=== PATIENT | male | born 1975 | race Caucasian/White ===

== ENCOUNTER → 2017-03-03 | Outpatient (CLI) | payer OTHER ==
--- NOTE | 2017-03-03 21:29 | XCELERA REPORT ---
[address] [address] Transthoracic Echocardiogram Report Name: RADHA CHOU JR Age: 41 yrs Gender: Male : 1975 Patient Status: Outpatient Patient Location: Study Date: 03/03/2017 09:04 AM Height: 69 in Weight: 190 lb BSA: 2.0 m2 Reason For Study: PERICARDIAL EFFUSION Ordering Physician: MARJAN LANGLEY Performed By: Rm Daigle Interpretation Summary no significant post pericardial effusion Normal AV Normal MV except mild mitral annular calcification,no Libman Sachs endocarditis., mild MR with no KA enlargement. Normal LVEF 58%, no LV diastolic dysfunction, hypokinetic IVS, anterior wall and apical lateral wall, no LV enlargement. Trace TR with no pulm hypertension, RVSP 25. MMode/2D Measurements \T\ Calculations RVDd: 2.8 cm LVIDd: 5.6 cm FS: 32.1 % Ao root diam: 3.2 cm IVSd: 0.75 cm LVIDs: 3.8 cm EDV(Teich): 151.8 ml LVPWd: 0.77 cm ESV(Teich): 61.3 ml Ao root area: 7.8 cm2 EF(Teich): 59.6 % LA dimension: 3.3 cm Doppler Measurements \T\ Calculations MV E max victor hugo: MV P1/2t max victor hugo: Ao V2 max: LV V1 max P.3 cm/sec 61.4 cm/sec 123.5 cm/sec 4.2 mmHg MV A max victor hugo: MV P1/2t: 72.1 msec Ao max PG: LV V1 max: 57.6 cm/sec 6.1 mmHg 102.2 cm/sec MV E/A: 1.0 MVA(P1/2t): 3.0 cm2 MV dec slope: 249.1 cm/sec2 PA V2 max: PI end-d victor hugo: TR max victor hugo: RAP systole: 55.8 cm/sec 99.9 cm/sec 193.2 cm/sec 10.0 mmHg PA max PG: TR max P.2 mmHg 15.0 mmHg RVSP(TR): 25.0 mmHg Left Ventricle The left ventricle is normal in size. There is normal left ventricular wall thickness. The left ventricular ejection fraction is normal. LV EF is 58%. Doppler measurements suggest normal left ventricular diastolic function. There is septal wall mild hypokinesis. There is anterior wall mild hypokinesis. There is lateral wall mild hypokinesis. There is no thrombus. Right Ventricle The right ventricle is normal size. The right ventricular systolic function is normal. Atria The right atrium is normal. The left atrial size is normal. The interatrial septum is intact with no evidence for an atrial septal defect. Mitral Valve There is mild mitral leaflet calcification. There is no evidence of mitral valve prolapse. There is no vegetation seen on the mitral valve. There is no mitral valve stenosis. There is a mild amount of mitral regurgitation. Aortic Valve The aortic valve is normal in structure and functions normally. The aortic valve is trileaflet. The aortic valve opens well. There is no aortic valvular vegetation. There is no aortic valve stenosis. No aortic regurgitation is present. Tricuspid Valve The tricuspid valve is not well visualized, but is grossly normal. There is no tricuspid valve prolapse. There is no tricuspid valve vegetation. There is no tricuspid stenosis. There is a mild amount of tricuspid regurgitation. Right ventricular systolic pressure is normal. 25mmHg. Pulmonic Valve The pulmonic valve is not well seen, but is grossly normal. There is a trace or physiologic amount of pulmonic regurgitation. Great Vessels The aortic root is normal size. Effusions Minimal pericardial effusion. I WMSI = 1.63 % Normal = 38 Segments Size X - Cannot 1 - Normal 2 - 3 - Akinetic4 - 1-2 small Interpret Hypokinetic Dyskinetic 3-5 moderate 5 - 6-14 large Aneurysmal 15-16 diffuse : MARJAN LANGLEY > Torito Boggs
== END ==
LOC: SP 08:27
PROVIDERS: ATTEND Internal Medicine Rheumatology
DX: L93.1 Subacute cutaneous lupus erythematosus (principal); I31.3 Pericardial effusion (noninflammatory); I27.2 Other secondary pulmonary hypertension
CPT/HCPCS: 93306

== ENCOUNTER 2018-06-05 07:31 | Day surgery (SDC) | payer OTHER ==
[~2018-06-05 07:31] MED LIST: PROPOFOL INJ 200 MG/20 ML VIAL IV ONE
[2018-06-05 09:03] VITALS: BP 106/66
--- NOTE | 2018-06-05 13:05 | Operative Report ---
Operative Report DATE OF SURGERY: 06/05/18 Operative Report: The risks, benefits and alternatives of the procedure including risks of bleeding, perforation requiring surgery are explained to the patient in detail and informed consent is obtained. Patient has taken back to the endoscopy suite and placed in a left, lateral decubital position. Timeout was called. Propofol medications administered. A rectal examination is done which did not reveal any masses, tears or fissures. An Olympus videoscope was inserted into the patient's rectum. The scope was then carefully advanced all the way to the cecum. The cecum was identified by the usual anatomical landmarks including the ileocecal valve as well as the appendiceal office. Photodocumentation is obtained. The scope was then sequentially pulled back via the rest segments of the colon including the ascending colon, hepatic flexure, transverse colon, splenic flexure, descending colon and finally into the rectosigmoid portions of the colon. Retroflexion maneuvers performed. The risks benefits and alternatives of the procedure explained to the patient in detail and informed consent is obtained.A GIF Olympus video scope was inserted into the patient's mouth and hypopharynx, the esophagus is identified intubated and insufflated, the scope was then advanced through the esophagus stomach and duodenum, retroflexion maneuver is done, the esophagus stomach and first and second portions of the duodenum examined PREOPERATIVE DIAGNOSIS: Change in bowel habits. Dysphagia POSTOPERATIVE DIAGNOSIS: Inflammation noted on the right side of the colon status post biopsy. Internal hemorrhoids. Gastritis status post biopsy rule out Helicobacter pylori. Esophagitis versus Mercado's status post biopsy OPERATION: Colonoscopy with biopsy. EGD with biopsy SURGEON: TIFFANIE MARQUES ANESTHESIA: LMAC TISSUE REMOVED OR ALTERED: As noted above COMPLICATIONS: None. ESTIMATED BLOOD LOSS: None. INTRAOPERATIVE FINDINGS: As noted above. PROCEDURE: Patient tolerated procedure well. No immediate postprocedure complications are noted. Patient discharged in good condition. Discharge date 06/05/2018. Discharge diet: Regular. Discharge activity: Regular. 2-3 week follow-up to discuss findings. Patient is instructed to call the office or proceed to the emergency room should there be any further problems or questions. We will wait on pathology.
== END 2018-06-05 09:05 | disposition home or self-care (01) ==
LOC: END 07:31
PROVIDERS: ATTEND Internal Medicine Gastroenterology
DX: K21.0 Gastro-esophageal reflux disease with esophagitis (principal); K52.9 Noninfective gastroenteritis and colitis, unspecified; K64.8 Other hemorrhoids; K29.70 Gastritis, unspecified, without bleeding
CPT/HCPCS: 43239; 45380; 88305 ×2; 88312 ×2; J2704; 813

== ENCOUNTER 2018-07-25 17:02 | Emergency (ER) | payer OTHER ==
--- NOTE | 2018-07-25 19:02 | ER Document Report ---
ED Medical Screen (RME) - General Chief Complaint: Breathing Difficulty Stated Complaint: DIFFICULTY BREATHING Time Seen by Provider: 07/25/18 18:54 TRAVEL OUTSIDE OF THE [place] IN LAST 30 DAYS: No - HPI Notes: 07/25/18 19:00 Patient is a 43-year-old male with a history of lupus and PTSD who presents to the ED complaining of right sided sharp chest pain with deep inspiration that is also worsened by going up stairs over the last 3-4 days. Denies any prolonged immobilization, distance travel, recent surgery/trauma, current CA, hormone use, current smoking, or previous DVT/PE. Denies any headache, fever, URI, sore throat, palpitations, syncope, cough, wheezing, abdominal pain, nausea/vomiting/diarrhea, urinary retention, dysuria, hematuria, or rash. I have treated and performed a rapid initial assessment of this patient. A comprehensive ED assessment and evaluation of the patient, analysis of test results and completion of medical decision making process will be conducted by additional ED providers. PHYSICAL EXAMINATION: GENERAL: Well-appearing, well-nourished and in no acute distress. A&Ox4. Answers questions appropriately. LUNGS: Breath sounds clear to auscultation bilaterally and equal. No wheezes rales or rhonchi. HEART: Regular rate and rhythm without murmurs, rubs, gallops. ABDOMEN: Soft, nondistended abdomen. No guarding, no rebound. Normal bowel sounds present. No CVA tenderness bilaterally. grossly non-tender. Extremities: No cyanosis, clubbing, or edema b/l. no asymmetry. Brooke neg b/ l. NEUROLOGICAL: Normal speech, normal gait. PSYCH: Normal mood, normal affect. - Related Data Allergies/Adverse Reactions: No Known Allergies Allergy (Verified 07/25/18 17:03) Past Medical History - Past Medical History Cardiac Medical History: Denies: Hx Coronary Artery Disease, Hx Heart Attack, Hx Hypertension Pulmonary Medical History: Denies: Hx Asthma, Hx Bronchitis, Hx COPD, Hx Pneumonia Neurological Medical History: Denies: Hx Cerebrovascular Accident, Hx Seizures Musculoskeltal Medical History: Reports Hx Arthritis - R/T LUPUS Past Surgical History: Reports: Hx Neurologic Surgery - RF ABLATION OF SPINAL NERVES IN NECK, Hx Orthopedic Surgery, Hx Urinary Tract Surgery - VASECTOMY - Immunizations Hx Diphtheria, Pertussis, Tetanus Vaccination: - Unknown Influenza Administration Date for 08/2017 - 01/2018 Season: 08/21/17 Physical Exam - Vital signs Vitals: Temp Pulse Resp BP Pulse Ox 98.5 F 94 20 111/72 97 07/25/18 18:02 07/25/18 18:02 07/25/18 18:02 07/25/18 18:02 07/25/18 18:02 Course - Vital Signs Vital signs: Temp Pulse Resp BP Pulse Ox 98.5 F 94 20 111/72 97 07/25/18 18:02 07/25/18 18:02 07/25/18 18:02 07/25/18 18:02 07/25/18 18:02 Doctor's Discharge - Discharge Referrals: ZION TOLENTINO MD [Primary Care Provider] - Follow up as needed
--- NOTE | 2018-07-25 19:23 | EKG REPORT ---
SEVERITY:- NORMAL ECG - SINUS RHYTHM : Confirmed by: Torito Boggs MD 25-Jul-2018 19:22:52
--- NOTE | 2018-07-25 20:35 | RADIOLOGY REPORT (SQ) ---
EXAM DESCRIPTION: CHEST SINGLE VIEW COMPLETED DATE/TIME: 07/25/2018 7:54 pm REASON FOR STUDY: chest pain, sob COMPARISON: 08/29/2016 EXAM PARAMETERS: NUMBER OF VIEWS: One view. TECHNIQUE: Single frontal radiographic view of the chest acquired. RADIATION DOSE: NA LIMITATIONS: None. FINDINGS: LUNGS AND PLEURA: No opacities, masses or pneumothorax. No pleural effusion. MEDIASTINUM AND HILAR STRUCTURES: No masses. Contour normal. HEART AND VASCULAR STRUCTURES: Heart normal in size. Normal vasculature. BONES: No acute findings. HARDWARE: None in the chest. OTHER: No other significant finding. IMPRESSION: NO ACUTE RADIOGRAPHIC FINDING IN THE CHEST. TECHNICAL DOCUMENTATION: JOB ID: [id number] [employer]- All Rights Reserved Reading location - IP/workstation name: [email or web address]
[2018-07-25 20:39] LABS: ABSOLUTE BASOPHILS # (AUTO) 0.1 10^3/uL (0.0-0.2); ABSOLUTE EOSINOPHILS # (AUTO) 0.2 10^3/uL (0.0-0.6); ABSOLUTE LYMPHOCYTES (AUTO) 2.4 10^3/uL (0.5-4.7); ABSOLUTE MONOCYTES (AUTO) 0.6 10^3/uL (0.1-1.4); ABSOLUTE NEUT (AUTO) 6.8 10^3/uL (1.7-8.2); BASOPHILS % (AUTO) 1.2 % (0-2); EOSINOPHILS % (AUTO) 1.6 % (0-6); HEMATOCRIT 42.3 % (37.9-51.0); HEMOGLOBIN 14.3 g/dL (13.5-17.0); LYMPHOCYTES % (AUTO) 23.6 % (13-45); MEAN CORPUSCULAR HEMOGLOBIN 27.6 pg (27.0-33.4); MEAN CORPUSCULAR HGB CONC 33.8 g/dL (32.0-36.0); MEAN CORPUSCULAR VOLUME 82 fl (80-97); MONOCYTES % (AUTO) 6.1 % (3-13); PLATELET COUNT 279 10^3/uL (150-450); RED BLOOD COUNT 5.18 10^6/uL (4.35-5.55); RED CELL DISTRIBUTION WIDTH 14.1 % (11.5-14.0); SEGMENTED NEUTROPHILS % (AUTO) 67.5 % (42-78); TOTAL CELLS COUNTED % (AUTO) 100 %; WHITE BLOOD COUNT 10.1 10^3/uL (4.0-10.5)
[2018-07-25 20:57] LABS: ALANINE AMINOTRANSFERASE 31 U/L (21-72); ALBUMIN 4.2 g/dL (3.5-5.0); ALKALINE PHOSPHATASE 46 U/L (38-126); ANION GAP 10 (5-19); ASPARTATE AMINO TRANSFERASE 25 U/L (17-59); BILIRUBIN,DIRECT 0.3 mg/dL (0.0-0.4); BILIRUBIN,TOTAL 0.4 mg/dL (0.2-1.3); BLOOD UREA NITROGEN 12 mg/dL (7-20); CALCIUM 9.7 mg/dL (8.4-10.2); CARBON DIOXIDE 30 mmol/L (22-30); CHLORIDE 103 mmol/L (98-107); GLUCOSE 97 mg/dL (75-110); SODIUM 142.8 mmol/L (137-145)
[2018-07-25 21:10] LABS: NT PRO BNP < 11 pg/mL (<125); TROPONIN I < 0.012 ng/mL
[2018-07-25] MEDS ORDERED: METHYLPREDNISOLONE INJ 125 MG/2 ML SDV IV ONE (23:42)
[2018-07-26 00:07] VITALS: BP 112/80
--- NOTE | 2018-07-26 00:54 | ER Document Report ---
ED General - General Chief Complaint: Breathing Difficulty Stated Complaint: DIFFICULTY BREATHING Time Seen by Provider: 07/25/18 18:54 Information source: Patient, Relative TRAVEL OUTSIDE OF THE [place] IN LAST 30 DAYS: No - HPI Patient complains to provider of: Pain along right chest Onset: Other - This 43-year-old man presents for evaluation of pain and some shortness of breath associated with some discomfort along the right side of his chest which is similar to previous episodes of lupus flares he has had in the past, he was diagnosed with lupus and started on multiple immunomodulators in the past including daily prednisone. Currently denies any fevers or chills, any systemic signs of infection, denies any changes in his medications recently. Nothing is seemed to make this pain any better, touching the spot seems to make it worse. - Related Data Allergies/Adverse Reactions: No Known Allergies Allergy (Verified 07/25/18 17:03) Past Medical History - General Information source: Patient, Relative - Social History Smoking Status: Former Smoker Family History: CAD - MOTHER IN LATE 30's Patient has suicidal ideation: No Patient has homicidal ideation: No - Past Medical History Cardiac Medical History: Denies: Hx Coronary Artery Disease, Hx Heart Attack, Hx Hypertension Pulmonary Medical History: Denies: Hx Asthma, Hx Bronchitis, Hx COPD, Hx Pneumonia Neurological Medical History: Denies: Hx Cerebrovascular Accident, Hx Seizures Renal/ Medical History: Denies: Hx Peritoneal Dialysis Musculoskeletal Medical History: Reports Hx Arthritis - R/T LUPUS Past Surgical History: Reports: Hx Neurologic Surgery - RF ABLATION OF SPINAL NERVES IN NECK, Hx Orthopedic Surgery, Hx Urinary Tract Surgery - VASECTOMY - Immunizations Hx Diphtheria, Pertussis, Tetanus Vaccination: - Unknown Review of Systems - Review of Systems -: Yes All other systems reviewed and negative Physical Exam - Vital signs Vitals: Temp Pulse Resp BP Pulse Ox 98.5 F 94 20 111/72 97 07/25/18 18:02 07/25/18 18:02 07/25/18 18:02 07/25/18 18:02 07/25/18 18:02 - General General appearance: Appears well In distress: None - HEENT Head: Normocephalic Eyes: Normal Conjunctiva: Normal Cornea: Normal Extraocular movements intact: Yes Eyelashes: Normal Pupils: PERRL - Respiratory Respiratory status: No respiratory distress Chest status: Tender Breath sounds: Normal Chest palpation: Normal - Cardiovascular Rhythm: Regular, Other Heart sounds: Normal auscultation Murmur: No - Abdominal Inspection: Normal Distension: No distension Tenderness: Nontender - Back Back: Normal - Extremities General upper extremity: Normal inspection, Nontender, Normal strength, Normal temperature General lower extremity: Normal inspection, Nontender, Normal strength, Normal temperature - Neurological Neuro grossly intact: Yes Cognition: Normal Orientation: AAOx4 Zev Coma Scale Eye Opening: Spontaneous Zev Coma Scale Verbal: Oriented [place] Coma Scale Motor: Obeys Commands [place] Coma Scale Total: 15 Speech: Normal Cranial nerves: Normal Cerebellar coordination: Normal Motor strength normal: LUE, RUE, LLE, RLE - Psychological Associated symptoms: Normal affect Course - Re-evaluation Re-evalutation: 07/26/18 07:24 43-year-old man who presents for evaluation of atypical chest pain in the setting of previous lupus flares. His current reproducible chest pain at the base of the right chest wall, through triage she had an EKG obtained as well as a troponin chest x-ray and labs. My does have pain in the right upper quadrant his LFTs are reassuring, he does not have any change in his LDH to suggest potential developing cholecystitis and his Tim sign is negative. Patient notes that in the past she has had episodes like this that responded very well to prednisone. Given that he does not have any obvious systemic signs of infection at this time will plan for the administration of prednisone IV. On reassessment after administration of methylprednisolone IV patient states that his pain is essentially entirely resolved, he feels as if his lungs are now open. I did speak to him about further options about testing. Following a secondary troponin which was also negative as was his first plan for this patient be discharged with follow-up with his source inspector he notes that he would like to talk to them about adjusting medications has no desire to pursue further testing at this time as he believes this is related to his lupus. We will plan for discharge with return precautions and encouraged follow-up in his primary physician's office. He was given a prescription for a single dose of 60 mg of prednisone in case of any return of symptoms. At the time of discharge the patient had been monitoring emergency department without any events he is ambulatory without assistance and had normal work of breathing. - Vital Signs Vital signs: Temp Pulse Resp BP Pulse Ox 98.5 F 66 16 112/80 96 07/25/18 18:02 07/26/18 00:06 07/26/18 00:06 07/26/18 00:06 07/26/18 00:06 - Laboratory Result Diagrams: 07/25/18 20:28 07/25/18 20:28 Laboratory results interpreted by me: 07/25/18 20:28 RDW 14.1 H Discharge - Discharge Clinical Impression: Shortness of breath Chest pain Qualifiers: Chest pain type: unspecified Qualified Code(s): R07.9 - Chest pain, unspecified Condition: Good Disposition: HOME, SELF-CARE Instructions: Chest Wall Pain ([facility]) Additional Instructions: you were seen for your chest pain and shortness of breath today. Your given a dose of steroids, you had 2 markers for heart damage both of which were negative. I am going to give you a second dose of steroids you can take tomorrow if you are still having some discomfort. Call your source inspector for appropriate follow-up. Prescriptions: Prednisone 60 mg PO ONCE PRN #3 tablet PRN Reason: Referrals: ZION TOLENTINO MD [Primary Care Provider] - Follow up as needed
== END 2018-07-26 01:14 | disposition home or self-care (01) ==
LOC: ER 17:02
DX: R06.02 Shortness of breath (principal); R07.9 Chest pain, unspecified; Z87.891 Personal history of nicotine dependence
CPT/HCPCS: 93005; 99285; 96374; 36415; 85025; 80053; 84484; 83880; 71045; 93010; J2930

== ENCOUNTER → 2018-09-01 | Outpatient (CLI) | payer OTHER ==
[2018-09-01 11:27] LABS: HEMATOCRIT 41.4 % (37.9-51.0); HEMOGLOBIN 14.2 g/dL (13.5-17.0); MEAN CORPUSCULAR HEMOGLOBIN 27.8 pg (27.0-33.4); MEAN CORPUSCULAR HGB CONC 34.3 g/dL (32.0-36.0); MEAN CORPUSCULAR VOLUME 81 fl (80-97); PLATELET COUNT 311 10^3/uL (150-450); RED BLOOD COUNT 5.12 10^6/uL (4.35-5.55); RED CELL DISTRIBUTION WIDTH 14.3 % (11.5-14.0); WHITE BLOOD COUNT 9.2 10^3/uL (4.0-10.5)
[2018-09-01 11:58] LABS: ALANINE AMINOTRANSFERASE 39 U/L (21-72); ALBUMIN 4.3 g/dL (3.5-5.0); ALKALINE PHOSPHATASE 52 U/L (38-126); ANION GAP 10 (5-19); ASPARTATE AMINO TRANSFERASE 26 U/L (17-59); BILIRUBIN,DIRECT 0.2 mg/dL (0.0-0.4); BILIRUBIN,TOTAL 0.6 mg/dL (0.2-1.3); BLOOD UREA NITROGEN 15 mg/dL (7-20); CALCIUM 9.9 mg/dL (8.4-10.2); CARBON DIOXIDE 28 mmol/L (22-30); CHLORIDE 103 mmol/L (98-107); GLUCOSE 101 mg/dL (75-110); POTASSIUM 4.8 mmol/L (3.6-5.0); SODIUM 141.4 mmol/L (137-145)
[2018-09-01 12:12] LABS: FREE T3 3.43 pg/mL (2.77-5.27); FREE T4 (FREE THYROXINE) 0.87 ng/dL (0.78-2.19)
[2018-09-01 12:25] LABS: THYROID STIMULATING HORMONE 1.24 uIU/mL (0.47-4.68)
[2018-09-01 13:00] LABS: FOLATE 6.22 ng/mL (>2.76)
== END ==
LOC: OD 10:41
PROVIDERS: ATTEND Specialist
DX: G47.33 Obstructive sleep apnea (adult) (pediatric) (principal); G70.01 Myasthenia gravis with (acute) exacerbation; M62.81 Muscle weakness (generalized)
CPT/HCPCS: 36415; 80053; 82607; 82746; 83519; 84439; 84443; 84481; 85027

== ENCOUNTER 2018-10-20 09:41 | Emergency (ER) | payer OTHER ==
[2018-10-20] MEDS ORDERED: KETOROLAC TROMETHAMINE INJ/PF 30 MG/1 ML SDV IV ONE (12:37)
--- NOTE | 2018-10-20 12:40 | ER Document Report ---
ED General - General Chief Complaint: Shortness Of Breath Stated Complaint: BACK PAIN, TROUBLE BREATHING Time Seen by Provider: 10/20/18 12:09 Notes: Patient is a 43-year-old male with lupus that presents to the emergency department for chief complaint of thoracic back pain. Patient states he has been having pain in his upper back for about 2 weeks, has had a history of this in the past, that has been on and off for the past 5 years, but seemingly worse over the last 2 weeks. He rates the pain as a 7 out of 10, and occasionally worse with a deep breath. He states the pain is reproducible with pressing in a certain area of his left lower back and will wrap around towards the front. He reports he has had advanced imaging of MRIs for this pain, without any results that explain his symptoms. He is intermittently been on prednisone bursting which has helped with his symptoms. He describes the pain as an aching and occasionally sharp sensation. He denies having any chest pain with this, fevers, chills, night sweats, nausea, vomiting, abdominal pain, dysuria or hematuria. Past Medical History: Lupus, PTSD Past Surgical History: Ankle surgery, lipoma excision Social History: Denies tobacco use, admits to drinking 2-3 beers a day, denies illicit drug use. Family History: Reviewed and noncontributory for presenting illness Allergies: Reviewed, see documented allergy list. REVIEW OF SYSTEMS: Other than noted above, the 12 point review of systems was reviewed with the patient and were negative, all pertinent findings are included in the HPI. PHYSICAL EXAMINATION: Vital signs reviewed, nursing noted reviewed. GENERAL: Well-appearing, well-nourished and in no acute distress. HEAD: Atraumatic, normocephalic. EYES: Eyes appear normal, extraocular movements intact, sclera anicteric, conjunctiva are normal. ENT: nares patent, oropharynx clear without exudates. Moist mucous membranes. NECK: Normal range of motion, supple without lymphadenopathy LUNGS: Breath sounds clear to auscultation bilaterally and equal. No wheezes rales or rhonchi. HEART: Regular rate and rhythm without murmurs ABDOMEN: Soft, nontender, normoactive bowel sounds. No rebound, guarding, or rigidity. No masses appreciated. Back: There is an area of reproducible tenderness over the patient's left lower ribs, posteriorly, which extends out towards the flanks, no evidence of rash, no shingles present. No midline tenderness to the thoracic or lumbar spine. EXTREMITIES: Nontender, good range of motion, no pitting or edema. NEUROLOGICAL: No focal neurological deficits. Moves all extremities spontaneously Motor and sensory grossly intact on exam. PSYCH: Normal mood, normal affect. SKIN: Warm, Dry, normal turgor, no rashes or lesions noted on exposed skin TRAVEL OUTSIDE OF THE [place] IN LAST 30 DAYS: No - Related Data Allergies/Adverse Reactions: No Known Allergies Allergy (Verified 10/20/18 09:41) Past Medical History - Social History Smoking Status: Never Smoker Chew tobacco use (# tins/day): No Frequency of alcohol use: Occasional Drug Abuse: Marijuana Family History: CAD - MOTHER IN LATE 30's Patient has suicidal ideation: No Patient has homicidal ideation: No - Past Medical History Cardiac Medical History: Denies: Hx Coronary Artery Disease, Hx Heart Attack, Hx Hypertension Pulmonary Medical History: Denies: Hx Asthma, Hx Bronchitis, Hx COPD, Hx Pneumonia Neurological Medical History: Denies: Hx Cerebrovascular Accident, Hx Seizures Renal/ Medical History: Denies: Hx Peritoneal Dialysis Musculoskeletal Medical History: Reports Hx Arthritis - R/T LUPUS Psychiatric Medical History: Reports: Hx Depression - PTSD Past Surgical History: Reports: Hx Neurologic Surgery - RF ABLATION OF SPINAL NERVES IN NECK, Hx Orthopedic Surgery, Hx Urinary Tract Surgery - VASECTOMY - Immunizations Hx Diphtheria, Pertussis, Tetanus Vaccination: - Unknown Physical Exam - Vital signs Vitals: Temp Pulse Resp BP Pulse Ox 97.7 F 79 20 123/90 H 100 10/20/18 09:45 10/20/18 09:45 10/20/18 09:45 10/20/18 09:45 10/20/18 09:45 Course - Re-evaluation Re-evalutation: Patient seen and examined vital signs reviewed. Laboratory data and imaging were ordered as appropriate for the patient's presenting symptoms and complaint, with consideration of any critical or life threatening conditions that may be associated with their obtained history and exam as noted above. Patient was treated with Toradol for pain Results were reviewed when available and demonstrated unremarkable blood work, negative chest x-ray, negative UA The patient was re-evaluated and was stable and somewhat improved Evaluation was most consistent with muscle skeletal back pain, patient did have reproducible tenderness, possibly is a flare of his lupus, therefore we will treat him with 5 days of 60 mg of prednisone daily, and have him resume back to his 10 mg daily and follow-up with his radiology practitioner assistant patient was agreeable to this plan of care. Results were discussed with the patient at this point, after careful consideration I feel that that patient can be discharged from the emergency department, the patient was educated treatments and reasons to return to the emergency department based on their presumed diagnosis as noted above, they were advised to followup with a primary care physician in 2-3 days. Patient was agreeable to plan of care. *Note is created using voice recognition software and may contain spelling, syntax or grammatical errors. Laboratory 10/20/18 10/20/18 10/20/18 10:03 10:03 10:03 WBC 8.9 RBC 5.08 Hgb 14.2 Hct 41.2 MCV 81 MCH 27.9 MCHC 34.4 RDW 15.2 H Plt Count 247 Seg Neutrophils % 65.9 Lymphocytes % 21.5 Monocytes % 7.7 Eosinophils % 3.6 Basophils % 1.3 Absolute Neutrophils 5.9 Absolute Lymphocytes 1.9 Absolute Monocytes 0.7 Absolute Eosinophils 0.3 Absolute Basophils 0.1 Sodium 143.8 Potassium 4.0 Chloride 106 Carbon Dioxide 29 Anion Gap 9 BUN 9 Creatinine 0.91 Est GFR ( Amer) > 60 Est GFR (Non-Af Amer) > 60 Glucose 104 Calcium 9.2 Total Bilirubin 0.3 Direct Bilirubin 0.2 Neonat Total Bilirubin Not Reportable Neonat Direct Bilirubin Not Reportable Neonat Indirect Bili Not Reportable AST 27 ALT 26 Alkaline Phosphatase 47 Troponin I < 0.012 Total Protein 6.9 Albumin 3.9 Urine Color Urine Appearance Urine pH Ur Specific [place] Urine Protein Urine Glucose (UA) Urine Ketones Urine Blood Urine Nitrite Urine Bilirubin Urine Urobilinogen Ur Leukocyte Esterase Urine WBC (Auto) Urine RBC (Auto) Urine Mucus (Auto) Urine Ascorbic Acid 10/20/18 13:28 WBC RBC Hgb Hct MCV MCH MCHC RDW Plt Count Seg Neutrophils % Lymphocytes % Monocytes % Eosinophils % Basophils % Absolute Neutrophils Absolute Lymphocytes Absolute Monocytes Absolute Eosinophils Absolute Basophils Sodium Potassium Chloride Carbon Dioxide Anion Gap BUN Creatinine Est GFR ( Amer) Est GFR (Non-Af Amer) Glucose Calcium Total Bilirubin Direct Bilirubin Neonat Total Bilirubin Neonat Direct Bilirubin Neonat Indirect Bili AST ALT Alkaline Phosphatase Troponin I Total Protein Albumin Urine Color YELLOW Urine Appearance CLEAR Urine pH 6.0 Ur Specific [place] 1.013 Urine Protein NEGATIVE Urine Glucose (UA) NEGATIVE Urine Ketones NEGATIVE Urine Blood NEGATIVE Urine Nitrite NEGATIVE Urine Bilirubin NEGATIVE Urine Urobilinogen NEGATIVE Ur Leukocyte Esterase NEGATIVE Urine WBC (Auto) 0 Urine RBC (Auto) 0 Urine Mucus (Auto) RARE Urine Ascorbic Acid NEGATIVE Chest X-Ray 10/20/18 12:36 IMPRESSION: NO ACUTE RADIOGRAPHIC FINDING IN THE CHEST. - Vital Signs Vital signs: Temp Pulse Resp BP Pulse Ox 97.7 F 79 14 103/52 L 93 10/20/18 09:45 10/20/18 09:45 10/20/18 14:01 10/20/18 14:01 10/20/18 14:01 - Laboratory Result Diagrams: 10/20/18 10:03 10/20/18 10:03 Laboratory results interpreted by me: 10/20/18 10:03 RDW 15.2 H Discharge - Discharge Clinical Impression: Back pain Qualifiers: Back pain location: thoracic back pain Chronicity: chronic Back pain laterality : left Qualified Code(s): M54.6 - Pain in thoracic spine; G89.29 - Other chronic pain; G89.29 - Other chronic pain Condition: Stable Disposition: HOME, SELF-CARE Instructions: Chronic Back Pain ([facility]) Additional Instructions: Please take medications as prescribed, please follow-up with your radiology practitioner assistant , if your symptoms are worsening or not improving, do not hesitate to return to the emergency department. Prescriptions: Prednisone [Deltasone 20 mg Tablet] 3 tab PO DAILY 5 Days #15 tablet Referrals: ZION TOLENTINO MD [Primary Care Provider] - Follow up in 3-5 days
[2018-10-20 12:57] LABS: ABSOLUTE BASOPHILS # (AUTO) 0.1 10^3/uL (0.0-0.2); ABSOLUTE EOSINOPHILS # (AUTO) 0.3 10^3/uL (0.0-0.6); ABSOLUTE LYMPHOCYTES (AUTO) 1.9 10^3/uL (0.5-4.7); ABSOLUTE MONOCYTES (AUTO) 0.7 10^3/uL (0.1-1.4); ABSOLUTE NEUT (AUTO) 5.9 10^3/uL (1.7-8.2); BASOPHILS % (AUTO) 1.3 % (0-2); EOSINOPHILS % (AUTO) 3.6 % (0-6); HEMATOCRIT 41.2 % (37.9-51.0); HEMOGLOBIN 14.2 g/dL (13.5-17.0); LYMPHOCYTES % (AUTO) 21.5 % (13-45); MEAN CORPUSCULAR HEMOGLOBIN 27.9 pg (27.0-33.4); MEAN CORPUSCULAR HGB CONC 34.4 g/dL (32.0-36.0); MEAN CORPUSCULAR VOLUME 81 fl (80-97); MONOCYTES % (AUTO) 7.7 % (3-13); PLATELET COUNT 247 10^3/uL (150-450); RED BLOOD COUNT 5.08 10^6/uL (4.35-5.55); RED CELL DISTRIBUTION WIDTH 15.2 % (11.5-14.0); SEGMENTED NEUTROPHILS % (AUTO) 65.9 % (42-78); TOTAL CELLS COUNTED % (AUTO) 100 %; WHITE BLOOD COUNT 8.9 10^3/uL (4.0-10.5)
--- NOTE | 2018-10-20 12:57 | RADIOLOGY REPORT (SQ) ---
EXAM DESCRIPTION: CHEST 2 VIEWS COMPLETED DATE/TIME: 10/20/2018 12:49 pm REASON FOR STUDY: pleuritic pain COMPARISON: AP CHEST 07/25/2018, 06/16/2016 EXAM PARAMETERS: NUMBER OF VIEWS: two views TECHNIQUE: Digital Frontal and Lateral radiographic views of the chest acquired. RADIATION DOSE: NA LIMITATIONS: none FINDINGS: LUNGS AND PLEURA: No opacities, masses or pneumothorax. No pleural effusion. MEDIASTINUM AND HILAR STRUCTURES: No masses or contour abnormalities. HEART AND VASCULAR STRUCTURES: Heart normal size. No evidence for failure. BONES: No acute findings. HARDWARE: None in the chest. OTHER: No other significant finding. IMPRESSION: NO ACUTE RADIOGRAPHIC FINDING IN THE CHEST. TECHNICAL DOCUMENTATION: JOB ID: [id number] [employer]- All Rights Reserved Reading location - IP/workstation name: [email or web address]
[2018-10-20 13:10] LABS: ALANINE AMINOTRANSFERASE 26 U/L (21-72); ALBUMIN 3.9 g/dL (3.5-5.0); ALKALINE PHOSPHATASE 47 U/L (38-126); ANION GAP 9 (5-19); ASPARTATE AMINO TRANSFERASE 27 U/L (17-59); BILIRUBIN,DIRECT 0.2 mg/dL (0.0-0.4); BILIRUBIN,TOTAL 0.3 mg/dL (0.2-1.3); BLOOD UREA NITROGEN 9 mg/dL (7-20); CALCIUM 9.2 mg/dL (8.4-10.2); CARBON DIOXIDE 29 mmol/L (22-30); CHLORIDE 106 mmol/L (98-107); GLUCOSE 104 mg/dL (75-110); SODIUM 143.8 mmol/L (137-145); TOTAL PROTEIN 6.9 g/dL (6.3-8.2)
[2018-10-20 13:50] LABS: APPEARANCE,URINE CLEAR; BILIRUBIN,URINE NEGATIVE (NEGATIVE); COLOR,URINE YELLOW; GLUCOSE, URINE NEGATIVE (NEGATIVE); KETONES,URINE NEGATIVE (NEGATIVE); LEUKOCYTE ESTERASE,URINE NEGATIVE (NEGATIVE); NITRITE,URINE NEGATIVE (NEGATIVE); PROTEIN,URINE NEGATIVE (NEGATIVE); URINE SPECIFIC GRAVITY 1.013; UROBILINOGEN,URINE NEGATIVE mg/dL (<2.0)
[2018-10-20 14:08] VITALS: BP 103/52
--- NOTE | 2018-10-20 19:45 | EKG REPORT ---
SEVERITY:- NORMAL ECG - SINUS RHYTHM : Confirmed by: Torito Boggs MD 20-Oct-2018 19:44:58
== END 2018-10-20 14:14 | disposition home or self-care (01) ==
LOC: ER 09:41
DX: M54.6 Pain in thoracic spine (principal); G89.29 Other chronic pain; R06.02 Shortness of breath
CPT/HCPCS: 93005; 99284; 96374; 36415; 85025; 80053; 81001; 84484; 71046; 93010; J1885

== ENCOUNTER 2019-04-17 17:36 | Emergency (ER) | payer OTHER ==
[2019-04-17] MEDS ORDERED: KETOROLAC TROMETHAMINE 60 MG/2 ML SDV IM ONE (18:19)
--- NOTE | 2019-04-17 18:22 | ER Document Report ---
ED Medical Screen (RME) - General Chief Complaint: Back Injury Stated Complaint: BACK PAIN Time Seen by Provider: 04/17/19 18:19 Primary Care Provider: ZION TOLENTINO MD [Primary Care Provider] - Follow up as needed Mode of Arrival: Ambulatory Information source: Patient Notes: 44-year-old male presented to ED for complaint of pain to the right flank area. He states it started on Tuesday. He states he monitored his cleaning up to sit on Tuesday but he did not lift anything. He does have a history of lupus and chronic back pain but this is different than his normal pain. Patient is alert oriented respirations regular and unlabored. I have greeted and performed a rapid initial assessment of this patient. A comprehensive ED assessment and evaluation of the patient, analysis of test results and completion of medical decision making process will be conducted by an additional ED providers. Dictation of this chart was performed using voice recognition software; therefore, there may be some unintended grammatical errors. TRAVEL OUTSIDE OF THE [place] IN LAST 30 DAYS: No - Related Data Allergies/Adverse Reactions: No Known Allergies Allergy (Verified 10/20/18 09:41) Past Medical History - Past Medical History Cardiac Medical History: Denies: Hx Coronary Artery Disease, Hx Heart Attack, Hx Hypertension Pulmonary Medical History: Denies: Hx Asthma, Hx Bronchitis, Hx COPD, Hx Pneumonia Neurological Medical History: Denies: Hx Cerebrovascular Accident, Hx Seizures Renal/ Medical History: Denies: Hx Peritoneal Dialysis Musculoskeltal Medical History: Reports Hx Arthritis - R/T LUPUS Psychiatric Medical History: Reports: Hx Depression - PTSD Past Surgical History: Reports: Hx Neurologic Surgery - RF ABLATION OF SPINAL NERVES IN NECK, Hx Orthopedic Surgery, Hx Urinary Tract Surgery - VASECTOMY - Immunizations Hx Diphtheria, Pertussis, Tetanus Vaccination: - Unknown Influenza Administration Date for 08/2017 - 01/2018 Season: 08/21/17 Physical Exam - Vital signs Vitals: Temp Pulse Resp BP Pulse Ox 98.6 F 96 16 121/83 98 04/17/19 17:58 04/17/19 17:58 04/17/19 17:58 04/17/19 17:58 04/17/19 17:58 Course - Vital Signs Vital signs: Temp Pulse Resp BP Pulse Ox 98.6 F 96 16 121/83 98 04/17/19 17:58 04/17/19 17:58 04/17/19 17:58 04/17/19 17:58 04/17/19 17:58 Doctor's Discharge - Discharge Referrals: ZION TOLENTINO MD [Primary Care Provider] - Follow up as needed
[2019-04-17 19:16] LABS: APPEARANCE,URINE CLEAR; BILIRUBIN,URINE NEGATIVE (NEGATIVE); COLOR,URINE YELLOW; GLUCOSE, URINE NEGATIVE (NEGATIVE); KETONES,URINE NEGATIVE (NEGATIVE); LEUKOCYTE ESTERASE,URINE NEGATIVE (NEGATIVE); NITRITE,URINE NEGATIVE (NEGATIVE); PROTEIN,URINE NEGATIVE (NEGATIVE); URINE SPECIFIC GRAVITY 1.016; UROBILINOGEN,URINE NEGATIVE mg/dL (<2.0)
--- NOTE | 2019-04-17 19:18 | RADIOLOGY REPORT (SQ) ---
EXAM DESCRIPTION: CT ABD/PELVIS NO ORAL OR IV COMPLETED DATE/TIME: 04/17/2019 6:55 pm REASON FOR STUDY: Right flank pain since Tuesday COMPARISON: None. TECHNIQUE: CT scan of the abdomen and pelvis performed without intravenous or oral contrast. Images reviewed with lung, soft tissue, and bone windows. Reconstructed coronal and sagittal MPR images revi ewed. All images stored on PACS. All CT scanners at this facility use dose modulation, iterative reconstruction, and/or weight based d osing when appropriate to reduce radiation dose to as low as reasonably achievable (ALARA). [facility]: Dose Right [facility]: CareDose [facility]: Dose Right [facility]: Teradose 4D [facility]: Smart Kiddy RADIATION DOSE: CT Rad equipment meets quality standard of care and radiation dose reduction techniq ues were employed. CTDIvol: 16.0 mGy. DLP: 864 mGy-cm.mGy. LIMITATIONS: None. FINDINGS: LOWER CHEST: Minimal pericardial effusion. NON-CONTRASTED LIVER, SPLEEN, ADRENALS: Evaluation limited by lack of IV contrast. No identified sign ificant masses. PANCREAS: No masses. No peripancreatic inflammatory changes. GALLBLADDER: No identified stones by CT criteria. No inflammatory changes to suggest cholecystitis. RIGHT KIDNEY AND URETER: No suspicious masses. Assessment limited by lack of IV contrast. No signif icant calcifications. No hydronephrosis or hydroureter. LEFT KIDNEY AND URETER: No suspicious masses. Assessment limited by lack of IV contrast. No signifi cant calcifications. No hydronephrosis or hydroureter. AORTA AND RETROPERITONEUM: No aneurysm. No retroperitoneal masses or adenopathy. BOWEL AND PERITONEAL CAVITY: No obvious masses or inflammatory changes. No free fluid. APPENDIX: Normal. PELVIS, BLADDER, AND ABDOMINAL WALL:No abnormal masses. No free fluid. Bladder normal. BONES: No significant findings. OTHER: No other significant finding. IMPRESSION: Minimal pericardial effusion. No acute finding in the abdomen or pelvis. COMMENT: Quality ID # [id number]: Final reports with documentation of one or more dose reduction techniques (e.g., Automated exposure control, adjustment of the mA and/or kV according to patient size, use of iterative reconstruction technique) TECHNICAL DOCUMENTATION: JOB ID: [id number] [employer]- All Rights Reserved Reading location - IP/workstation name: [email or web address]
[2019-04-17] MEDS ORDERED: HYDROMORPHONE HCL INJ/PF 2 MG/ML AMPULE IM ONE (21:17)
--- NOTE | 2019-04-17 21:17 | ER Document Report ---
ED General - General Chief Complaint: Back Injury Stated Complaint: BACK PAIN Time Seen by Provider: 04/17/19 18:19 Primary Care Provider: ZION TOLENTINO MD [Primary Care Provider] - Follow up as needed Mode of Arrival: Ambulatory Information source: Patient TRAVEL OUTSIDE OF THE [place] IN LAST 30 DAYS: No - HPI Patient complains to provider of: Low back pain Onset: Other - 2 days ago Onset/Duration: Constant Quality of pain: Sharp Severity: Severe Pain Level: 5 Associated symptoms: None Exacerbated by: Movement Relieved by: Denies Similar symptoms previously: No Recently seen / treated by doctor: No Notes: This is a 44-year-old male with history of chronic low back pain and lupus here with worsening pain than normal. States he feels like he is getting ready to have a lupus flareup. Symptoms for the past 2 to 3 days. No fevers or chills. No chest pain. No shortness of breath. - Related Data Allergies/Adverse Reactions: No Known Allergies Allergy (Verified 10/20/18 09:41) Past Medical History - General Information source: Patient - Social History Smoking Status: Never Smoker Drug Abuse: None Family History: CAD - MOTHER IN LATE 's Patient has suicidal ideation: No Patient has homicidal ideation: No - Past Medical History Cardiac Medical History: Denies: Hx Coronary Artery Disease, Hx Heart Attack, Hx Hypertension Pulmonary Medical History: Denies: Hx Asthma, Hx Bronchitis, Hx COPD, Hx Pneumonia Neurological Medical History: Denies: Hx Cerebrovascular Accident, Hx Seizures Renal/ Medical History: Denies: Hx Peritoneal Dialysis Musculoskeletal Medical History: Reports Hx Arthritis - R/T LUPUS Psychiatric Medical History: Reports: Hx Depression - PTSD Past Surgical History: Reports: Hx Neurologic Surgery - RF ABLATION OF SPINAL NERVES IN NECK, Hx Orthopedic Surgery, Hx Urinary Tract Surgery - VASECTOMY - Immunizations Hx Diphtheria, Pertussis, Tetanus Vaccination: - Unknown Review of Systems - Review of Systems Notes: Constitutional: No fevers. No chills. EENT: No eye redness. No eye pain. No ear pain. No sore throat. Cardiovascular: No chest pain. No palpitations. Respiratory: No cough. No shortness of breath. No respiratory distress. Gastrointestinal: No abdominal pain. No nausea, vomiting, or diarrhea. Genitourinary: Atraumatic. No lesions. No pain. No discharge. Musculoskeletal: Atraumatic. No swelling. No deformities. Positive low back pain Skin: No rash or lesions. Lymphatic: No swollen lymph nodes. Neurologic: No headache. No syncope. Psychiatric: No suicidal or homicidal ideation. Physical Exam - Vital signs Vitals: Temp Pulse Resp BP Pulse Ox 98.6 F 96 16 121/83 98 04/17/19 17:58 04/17/19 17:58 04/17/19 17:58 04/17/19 17:58 04/17/19 17:58 - Notes Notes: General: Well-developed, well-nourished. In no acute distress. Non-toxic appearing. Cardiac: Well-perfused. Regular rate and rhythm. No murmurs, rubs, or gallops. Pulmonary: No respiratory distress. No cyanosis. Bilateral lung fiels are clear to auscultation. Abdominal: Non-distended. Non-rigid. Bowels sounds are present in all four quadrants. No guarding or rebound. HEENT: Head is atraumatic. Conjunctivae not reddened. No tearing. PERRL. EOMI. Orbits atraumatic. No periorbital swelling or erythema. Oropharynx is without erythema, swelling, or exudates. Neck: Supple. No adenopathy. No meningismus. Dermatologic: 2-3 shallow erythematous ulcers forming on the upper back Chest: Atraumatic. No chest wall tenderness to palpation. Musculoskeletal: Tenderness to mid lumbar spinal region without step-off Genitourinary: Examination deferred Neurologic: No gross neurologic deficits. Psychiatric: Normal mood. Course - Re-evaluation Re-evalutation: 04/17/19 21:21 Patient feels this is most likely a lupus flareup. There was an incidental finding of a minimal pericardial effusion. This was discussed with Dr. Robles. He indicated that this was an incidental finding that can be followed up as an outpatient with cardiology. - Vital Signs Vital signs: Temp Pulse Resp BP Pulse Ox 98.6 F 96 16 121/83 98 04/17/19 17:58 04/17/19 17:58 04/17/19 17:58 04/17/19 17:58 04/17/19 17:58 Discharge - Discharge Clinical Impression: Acute exacerbation of chronic low back pain, Pericardial effusion Condition: Good Disposition: HOME, SELF-CARE Instructions: Ice Packs ([facility]), Low Back Pain ([facility]) Prescriptions: Prednisone [Deltasone 20 mg Tablet] 3 tab PO DAILY 5 Days #15 tablet Referrals: ZION TOLENTINO MD [Primary Care Provider] - Follow up as needed SINA CHONG MD [ACTIVE STAFF] - Follow up as needed
[2019-04-17] MEDS ORDERED: ONDANSETRON 4 MG TAB.RAPDIS PO ONE (21:18)
[2019-04-17] MEDS ORDERED: DEXAMETHASONE SOD PHOS INJ 10 MG/1 ML VIAL IM ONE (21:18)
[2019-04-17 21:51] VITALS: BP 124/77
== END 2019-04-17 21:57 | disposition home or self-care (01) ==
LOC: ER 17:36
DX: G89.29 Other chronic pain (principal); M54.5 Low back pain; I31.3 Pericardial effusion (noninflammatory)
CPT/HCPCS: 99284; 96372; 81001; 74176; J1885; S0119; J1170; J1100

== ENCOUNTER 2019-09-30 16:35 | Emergency (ER) | payer OTHER ==
[2019-09-30] MEDS ORDERED: BUTALB/ACETAMINOPHEN/CAFFEINE 1 TAB EACH PO ONE (17:04)
--- NOTE | 2019-09-30 17:05 | ER Document Report ---
ED Medical Screen (RME) - General Chief Complaint: Pain All Over Stated Complaint: BODY PAIN Time Seen by Provider: 09/30/19 17:01 Primary Care Provider: SUZANNE MARI PA [Primary Care Provider] - Follow up as needed Information source: Patient Notes: Patient presents complaining of a lupus flare. Patient complains of headache, body aches and generalized fatigue. Symptoms started yesterday. No fever. I have greeted and performed a rapid initial assessment of this patient. A comprehensive ED assessment and evaluation of the patient, analysis of test results and completion of the medical decision making process will be conducted by additional ED providers. TRAVEL OUTSIDE OF THE [place] IN LAST 30 DAYS: No - Related Data Allergies/Adverse Reactions: No Known Allergies Allergy (Verified 10/20/18 09:41) Past Medical History - Past Medical History Cardiac Medical History: Denies: Hx Coronary Artery Disease, Hx Heart Attack, Hx Hypertension Pulmonary Medical History: Denies: Hx Asthma, Hx Bronchitis, Hx COPD, Hx Pneumonia Neurological Medical History: Denies: Hx Cerebrovascular Accident, Hx Seizures Renal/ Medical History: Denies: Hx Peritoneal Dialysis Musculoskeltal Medical History: Reports Hx Arthritis - R/T LUPUS Psychiatric Medical History: Reports: Hx Depression - PTSD Past Surgical History: Reports: Hx Neurologic Surgery - RF ABLATION OF SPINAL NERVES IN NECK, Hx Orthopedic Surgery, Hx Urinary Tract Surgery - VASECTOMY - Immunizations Hx Diphtheria, Pertussis, Tetanus Vaccination: - Unknown Physical Exam - Vital signs Vitals: Temp Pulse Resp BP Pulse Ox 98.5 F 64 14 110/71 99 09/30/19 16:41 09/30/19 16:41 09/30/19 16:41 09/30/19 16:41 09/30/19 16:41 - Neurological Neuro grossly intact: Yes Cognition: Normal Zev Coma Scale Eye Opening: Spontaneous Zev Coma Scale Verbal: Oriented Zev Coma Scale Motor: Obeys Commands [place] Coma Scale Total: 15 Speech: Normal Course - Vital Signs Vital signs: Temp Pulse Resp BP Pulse Ox 98.5 F 64 14 110/71 99 09/30/19 16:41 09/30/19 16:41 09/30/19 16:41 09/30/19 16:41 09/30/19 16:41 Doctor's Discharge - Discharge Referrals: SUZANNE MRAI PA [Primary Care Provider] - Follow up as needed
[2019-09-30 17:46] LABS: ABSOLUTE BASOPHILS # (AUTO) 0.1 10^3/uL (0.0-0.2); ABSOLUTE EOSINOPHILS # (AUTO) 0.1 10^3/uL (0.0-0.6); ABSOLUTE MONOCYTES (AUTO) 0.5 10^3/uL (0.1-1.4); ABSOLUTE NEUT (AUTO) 6.6 10^3/uL (1.7-8.2); EOSINOPHILS % (AUTO) 0.8 % (0-6); TOTAL CELLS COUNTED % (AUTO) 100 %
[2019-09-30 17:50] LABS: ABSOLUTE LYMPHOCYTES (AUTO) 1.7 10^3/uL (0.5-4.7); BASOPHILS % (AUTO) 0.9 % (0-2); HEMATOCRIT 42.2 % (37.9-51.0); HEMOGLOBIN 14.3 g/dL (13.5-17.0); LYMPHOCYTES % (AUTO) 18.8 % (13-45); MEAN CORPUSCULAR HEMOGLOBIN 27.4 pg (27.0-33.4); MEAN CORPUSCULAR HGB CONC 33.8 g/dL (32.0-36.0); MEAN CORPUSCULAR VOLUME 81 fl (80-97); MONOCYTES % (AUTO) 5.9 % (3-13); PLATELET COUNT 229 10^3/uL (150-450); RED CELL DISTRIBUTION WIDTH 15.4 % (11.5-14.0); SEGMENTED NEUTROPHILS % (AUTO) 73.6 % (42-78)
[2019-09-30 17:54] LABS: APPEARANCE,URINE CLEAR; BILIRUBIN,URINE NEGATIVE (NEGATIVE); COLOR,URINE STRAW; GLUCOSE, URINE NEGATIVE (NEGATIVE); KETONES,URINE NEGATIVE (NEGATIVE); PROTEIN,URINE NEGATIVE (NEGATIVE); URINE SPECIFIC GRAVITY 1.008; UROBILINOGEN,URINE NEGATIVE mg/dL (<2.0)
[2019-09-30 18:04] LABS: BLOOD UREA NITROGEN 11 mg/dL (7-20); CALCIUM 9.5 mg/dL (8.4-10.2); GLUCOSE 82 mg/dL (75-110)
[2019-09-30 18:05] LABS: ANION GAP 11 (5-19); CARBON DIOXIDE 28 mmol/L (22-30); CHLORIDE 105 mmol/L (98-107); CREATINE KINASE 82 U/L (55-170); POTASSIUM 4.1 mmol/L (3.6-5.0)
[2019-09-30] MEDS ORDERED: KETOROLAC TROMETHAMINE 60 MG/2 ML SDV IM ONE (20:31)
--- NOTE | 2019-09-30 21:28 | ER Document Report ---
ED General Pain - General Chief Complaint: Pain All Over Stated Complaint: BODY PAIN Time Seen by Provider: 09/30/19 17:01 Primary Care Provider: SUZANNE MARI PA [NO LOCAL MD] - Follow up as needed Information source: Patient, Relative - Notes: Mr. Bettencourt is a 44-year-old male with past medical history of lupus on Plaquenil and CellCept as well as prednisone 10 mg daily presenting to the ED for lupus flare. Patient states that he was unable to sleep most of yesterday evening secondary to pain all over, primarily in bilateral hips. He denies any falls or trauma. He states that his pain is quite diffuse however with last night it was focused in his hips. He denies any fever or chills although he endorses feeling hot all over. He denies any chest pain, abdominal pain, shor tness of breath or cough. No nausea, vomiting or diarrhea, dysuria, increased urinary frequency p.o. intake. TRAVEL OUTSIDE OF THE [place] IN LAST 30 DAYS: No - Related Data Allergies/Adverse Reactions: No Known Allergies Allergy (Verified 10/20/18 09:41) Home Medications: Prednisone, Lyrica, Wellbutrin, Clonidine, Tamazepam Past Medical History - General Information source: Patient - Social History Smoking Status: Current Every Day Smoker Family History: CAD - MOTHER IN LATE 30s Patient has suicidal ideation: No Patient has homicidal ideation: No - Past Medical History Cardiac Medical History: Denies: Hx Coronary Artery Disease, Hx Heart Attack, Hx Hypertension Pulmonary Medical History: Denies: Hx Asthma, Hx Bronchitis, Hx COPD, Hx Pneumonia Neurological Medical History: Denies: Hx Cerebrovascular Accident, Hx Seizures Renal/ Medical History: Denies: Hx Peritoneal Dialysis Musculoskeletal Medical History: Reports Hx Arthritis - R/T LUPUS Psychiatric Medical History: Reports: Hx Depression - PTSD Past Surgical History: Reports: Hx Neurologic Surgery - RF ABLATION OF SPINAL NERVES IN NECK, Hx Orthopedic Surgery, Hx Urinary Tract Surgery - VASECTOMY - Immunizations Hx Diphtheria, Pertussis, Tetanus Vaccination: - Unknown Review of Systems - Review of Systems Constitutional: See HPI EENT: No symptoms reported Cardiovascular: No symptoms reported Respiratory: No symptoms reported Gastrointestinal: No symptoms reported Genitourinary: No symptoms reported Male Genitourinary: No symptoms reported Musculoskeletal: See HPI Skin: No symptoms reported Hematologic/Lymphatic: No symptoms reported Neurological/Psychological: No symptoms reported Physical Exam - Vital signs Vitals: Temp Pulse Resp BP Pulse Ox 98.5 F 64 14 110/71 99 09/30/19 16:41 09/30/19 16:41 09/30/19 16:41 09/30/19 16:41 09/30/19 16:41 Interpretation: Normal - General General appearance: Appears well, Alert - HEENT Head: Normocephalic, Atraumatic Eyes: Normal Pupils: PERRL - Respiratory Respiratory status: No respiratory distress Chest status: Nontender Breath sounds: Normal Chest palpation: Normal - Cardiovascular Rhythm: Regular Heart sounds: Normal auscultation Murmur: No - Abdominal Inspection: Normal Distension: No distension Bowel sounds: Normal Tenderness: Nontender Organomegaly: No organomegaly - Back Back: Normal, Nontender - Extremities General upper extremity: Normal inspection, Nontender, Normal color, Normal ROM, Normal temperature General lower extremity: Normal inspection, Nontender, Normal color, Normal ROM, Normal temperature, Normal weight bearing. No: Brooke's sign - Neurological Neuro grossly intact: Yes Cognition: Normal Orientation: AAOx4 [place] Coma Scale Eye Opening: Spontaneous [place] Coma Scale Verbal: Oriented Zev Coma Scale Motor: Obeys Commands Zev Coma Scale Total: 15 Speech: Normal Motor strength normal: LUE, RUE, LLE, RLE Sensory: Normal - Psychological Associated symptoms: Normal affect, Normal mood - Skin Skin Temperature: Warm Skin Moisture: Dry Skin Color: Normal Course - Re-evaluation Re-evalutation: Patient is generally well-appearing nontoxic. Initial vitals within normal limits. He is otherwise normal physical examination with good strength and motor activity in all 4 extremities. Differential diagnosis includes lupus flare, fibromyalgia, rhabdomyolysis, dehydration, electrolyte abnormality. 09/30/19 21:24 Patient given Toradol IM for NSAID anti-inflammatory effect. He does take a daily 10 mg prednisone. Plan to administer a Medrol Dosepak and have the patient temporarily pause his daily prednisone starting tomorrow morning and start with the methylprednisone taper. Patient recommended to reinitiate his prednisone after. CK was within normal limits as well as remainder of labs. No evidence of acute findings on physical examination today to warrant further investigation. Patient given return precautions and instructed to follow-up with his primary care doctor. - Vital Signs Vital signs: Temp Pulse Resp BP Pulse Ox 98.5 F 64 14 110/71 99 11/10/19 16:41 09/30/19 16:41 09/30/19 16:41 09/30/19 16:41 09/30/19 16:41 - Laboratory Result Diagrams: 09/30/19 17:14 09/30/19 17:14 Laboratory results interpreted by me: 09/30/19 17:14 RDW 15.4 H Discharge - Discharge Clinical Impression: Diffuse pain, History of lupus Condition: Good Disposition: HOME, SELF-CARE Prescriptions: Methylprednisolone [Medrol Dosepack (4 mg/Tab) 21 Tab/Dosepak] 4 mg PO ASDIR PRN #[id number] tab.ds.pk PRN Reason: Referrals: SUZANNE MARI PA [NO LOCAL MD] - Follow up as needed
[2019-09-30 21:42] VITALS: BP 90/58
== END 2019-09-30 21:43 | disposition home or self-care (01) ==
LOC: ER 16:35
DX: M25.551 Pain in right hip (principal); M25.552 Pain in left hip; Z79.52 Long term (current) use of systemic steroids; Z79.899 Other long term (current) drug therapy; F32.9 Major depressive disorder, single episode, unspecified; F17.200 Nicotine dependence, unspecified, uncomplicated
CPT/HCPCS: 99284; 96374; 36415; 82550; 85025; 80048; 81001; J3490; J1885

== ENCOUNTER → 2019-10-05 | Outpatient (CLI) | payer OTHER ==
--- NOTE | 2019-10-05 09:18 | WOMENS IMAGING REPORT ---
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 TECHNIQUE: Dual-Energy X-ray Absorptiometry (DEXA) of the AP Spine and Hip. LIMITATIONS: None. FINDINGS: LUMBAR SPINE: The bone mineral density (BMD) measured from L1-L4 in the AP projection correlates with a T-score of -0.9, which is normal as defined by the World Health Organization. BMD Change vs Baseline: N/A HIP: The bone mineral density (BMD) measured in the left hip correlates with a T-score of -0 5, which is n ormal as defined by the World Health Organization. BMD Change vs Baseline: N/A 10 year Fracture Risk Assessment: Major Osteoporotic Fracture: Not available. Hip Fracture: Not available. IMPRESSION: 1. LUMBAR SPINE WHO CLASSIFICATION: NORMAL. 2. HIP WHO CLASSIFICATION: NORMAL. OVERALL ASSESSMENT: WHO CLASSIFICATION: NORMAL. COMMENT: The World Health Organization defines low BMD as follows: T-score: Normal: Greater than -1.0 Osteopenia: Between -1.0 and -2.5 Osteoporosis: Less than -2.5 without fractures Established osteoporosis: Less than -2.5 with fractures In general, you may wish to consider: Diagnosis Treatment Follow-up DEXA Normal BMD Prevention 2-3 years Osteopenia Prevention/Therapy 1-2 years Osteoporosis Therapy Yearly TECHNICAL DOCUMENTATION: JOB ID: [id number] [employer]- All Rights Reserved Reading location - IP/workstation name: [email or web address]
== END ==
LOC: WI 08:35
PROVIDERS: ATTEND Internal Medicine
DX: Z79.52 Long term (current) use of systemic steroids (principal)
CPT/HCPCS: 77080

== ENCOUNTER 2020-01-31 12:26 | Emergency (ER) | payer OTHER ==
--- NOTE | 2020-01-31 13:27 | ER Document Report ---
ED Medical Screen (RME) - General Chief Complaint: Flank Pain Stated Complaint: COUGH/FLANK PAIN/FATIGUE/DIFFICULTY BREATHING Time Seen by Provider: 01/31/20 13:21 Primary Care Provider: ZION TOLENTINO MD [Primary Care Provider] - Follow up as needed Mode of Arrival: Ambulatory Information source: Patient Notes: Patient is a 44-year-old male patient presenting to the emergency department chief complaint of right flank pain and left upper quadrant abdominal pain. Patient reports symptoms ongoing for the last few days. Denies any nausea, vomiting, diarrhea or fever. He also reports productive cough over the last week. He does report a history of lupus. Lung sounds clear and equal bilaterally. I have greeted and performed a rapid initial assessment of this patient. A comprehensive ED assessment and evaluation of the patient, analysis of test results and completion of the medical decision making process will be conducted by additional ED providers. I have specifically instructed the patient or family members with the patient to immediately return to any nursing staff should anything change in the patient's condition or with their chief complaint. TRAVEL OUTSIDE OF THE [place] IN LAST 30 DAYS: No - Related Data Allergies/Adverse Reactions: No Known Allergies Allergy (Verified 10/20/18 09:41) Past Medical History - Past Medical History Cardiac Medical History: Denies: Hx Coronary Artery Disease, Hx Heart Attack, Hx Hypertension Pulmonary Medical History: Denies: Hx Asthma, Hx Bronchitis, Hx COPD, Hx Pneumonia Neurological Medical History: Denies: Hx Cerebrovascular Accident, Hx Seizures Renal/ Medical History: Denies: Hx Peritoneal Dialysis Musculoskeltal Medical History: Reports Hx Arthritis - R/T LUPUS Psychiatric Medical History: Reports: Hx Depression - PTSD Past Surgical History: Reports: Hx Neurologic Surgery - RF ABLATION OF SPINAL NERVES IN NECK, Hx Orthopedic Surgery, Hx Urinary Tract Surgery - VASECTOMY - Immunizations Hx Diphtheria, Pertussis, Tetanus Vaccination: - Unknown Physical Exam - Vital signs Vitals: Temp Pulse Resp BP Pulse Ox 98.5 F 91 18 121/69 95 01/31/20 12:44 01/31/20 12:44 01/31/20 12:44 01/31/20 12:44 01/31/20 12:44 Course - Vital Signs Vital signs: Temp Pulse Resp BP Pulse Ox 98.5 F 91 18 121/69 95 01/31/20 12:44 01/31/20 12:44 01/31/20 12:44 01/31/20 12:44 01/31/20 12:44 Doctor's Discharge - Discharge Referrals: ZION TOLENTINO MD [Primary Care Provider] - Follow up as needed
[2020-01-31 13:45] LABS: ABSOLUTE BASOPHILS # (AUTO) 0.1 10^3/uL (0.0-0.2); ABSOLUTE EOSINOPHILS # (AUTO) 0.2 10^3/uL (0.0-0.6); ABSOLUTE LYMPHOCYTES (AUTO) 0.9 10^3/uL (0.5-4.7); ABSOLUTE MONOCYTES (AUTO) 0.4 10^3/uL (0.1-1.4); ABSOLUTE NEUT (AUTO) 7.9 10^3/uL (1.7-8.2); BASOPHILS % (AUTO) 1.3 % (0-2); HEMATOCRIT 39.9 % (37.9-51.0); HEMOGLOBIN 14.4 g/dL (13.5-17.0); MEAN CORPUSCULAR HEMOGLOBIN 29.7 pg (27.0-33.4); MEAN CORPUSCULAR HGB CONC 36.1 g/dL (32.0-36.0); MEAN CORPUSCULAR VOLUME 82 fl (80-97); MONOCYTES % (AUTO) 4.1 % (3-13); PLATELET COUNT 281 10^3/uL (150-450); RED BLOOD COUNT 4.85 10^6/uL (4.35-5.55); RED CELL DISTRIBUTION WIDTH 15.3 % (11.5-14.0); SEGMENTED NEUTROPHILS % (AUTO) 83.6 % (42-78); TOTAL CELLS COUNTED % (AUTO) 100 %; WHITE BLOOD COUNT 9.5 10^3/uL (4.0-10.5)
[2020-01-31 13:50] LABS: APPEARANCE,URINE CLEAR; BILIRUBIN,URINE NEGATIVE (NEGATIVE); COLOR,URINE YELLOW; GLUCOSE, URINE NEGATIVE (NEGATIVE); KETONES,URINE NEGATIVE (NEGATIVE); LEUKOCYTE ESTERASE,URINE NEGATIVE (NEGATIVE); NITRITE,URINE NEGATIVE (NEGATIVE); PROTEIN,URINE NEGATIVE (NEGATIVE)
[2020-01-31 13:52] LABS: ADD MANUAL MICROSCOPIC YES
--- NOTE | 2020-01-31 13:56 | RADIOLOGY REPORT (SQ) ---
EXAM DESCRIPTION: CHEST 2 VIEWS COMPLETED DATE/TIME: 01/31/2020 1:47 pm REASON FOR STUDY: cough x1 week COMPARISON: None. TECHNIQUE: Frontal and lateral radiographic views of the chest acquired. NUMBER OF VIEWS: Two view. LIMITATIONS: None. FINDINGS: LUNGS AND PLEURA: No opacities, masses or pneumothorax. No pleural effusion. MEDIASTINUM AND HILAR STRUCTURES: No masses or contour abnormalities. HEART AND VASCULAR STRUCTURES: Heart normal size. No evidence for failure. BONES: No acute findings. HARDWARE: None in the chest. OTHER: No other significant finding. IMPRESSION: NO SIGNIFICANT RADIOGRAPHIC FINDING IN THE CHEST. TECHNICAL DOCUMENTATION: JOB ID: [id number] 2010 [employer]- All Rights Reserved Reading location - IP/workstation name: [email or web address]
[2020-01-31 13:57] LABS: AMORPHOUS SEDIMENT,UR TRACE; BACTERIA,URINE TRACE /HPF; WBC,URINE NONE SEEN /HPF
[2020-01-31 14:04] LABS: ALBUMIN 4.3 g/dL (3.5-5.0); ALKALINE PHOSPHATASE 71 U/L (38-126); ANION GAP 9 (5-19); ASPARTATE AMINO TRANSFERASE 26 U/L (17-59); BILIRUBIN,TOTAL 0.6 mg/dL (0.2-1.3); BLOOD UREA NITROGEN 12 mg/dL (7-20); CALCIUM 9.1 mg/dL (8.4-10.2); CARBON DIOXIDE 27 mmol/L (22-30); CHLORIDE 105 mmol/L (98-107); GLUCOSE 102 mg/dL (75-110); POTASSIUM 4.4 mmol/L (3.6-5.0); TOTAL PROTEIN 6.9 g/dL (6.3-8.2)
[2020-01-31] MEDS ORDERED: METHYLPREDNISOLONE INJ 125 MG/2 ML SDV IM ONE (16:19)
--- NOTE | 2020-01-31 16:54 | ER Document Report ---
ED General - General Chief Complaint: Flank Pain Stated Complaint: COUGH/FLANK PAIN/FATIGUE/DIFFICULTY BREATHING Time Seen by Provider: 01/31/20 13:21 Primary Care Provider: ZION TOLENTINO MD [Primary Care Provider] - Follow up as needed Mode of Arrival: Ambulatory Information source: Patient, Relative Notes: Patient is a 44-year-old male presenting to the emergency department chief complaint of a 3-day history of right-sided flank pain. Patient denies any history of kidney stones. Patient denies slip or falls. Patient states he does have lupus and believes this is an exacerbation of same. Patient denies nausea vomiting diarrhea fevers chills cough or cold symptoms. TRAVEL OUTSIDE OF THE [place] IN LAST 30 DAYS: No - HPI Onset: Other - 3 days Onset/Duration: Gradual, Persistent, Worse Quality of pain: Achy, Pressure Severity: Moderate Pain Level: 2 Associated symptoms: None Exacerbated by: Denies Relieved by: Denies Similar symptoms previously: Yes Recently seen / treated by doctor: No - Related Data Allergies/Adverse Reactions: No Known Allergies Allergy (Verified 01/31/20 14:32) Past Medical History - General Information source: Patient - Social History Smoking Status: Former Smoker Frequency of alcohol use: None Drug Abuse: None Lives with: Spouse/Significant other Family History: CAD - MOTHER IN LATE 30's Patient has suicidal ideation: No Patient has homicidal ideation: No - Past Medical History Cardiac Medical History: Denies: Hx Coronary Artery Disease, Hx Heart Attack, Hx Hypertension Pulmonary Medical History: Denies: Hx Asthma, Hx Bronchitis, Hx COPD, Hx Pneumonia Neurological Medical History: Denies: Hx Cerebrovascular Accident, Hx Seizures Endocrine Medical History: Reports: Other - Lupus Renal/ Medical History: Denies: Hx Peritoneal Dialysis Musculoskeletal Medical History: Reports Hx Arthritis - R/T LUPUS Psychiatric Medical History: Reports: Hx Depression - PTSD Past Surgical History: Reports: Hx Neurologic Surgery - RF ABLATION OF SPINAL NERVES IN NECK, Hx Orthopedic Surgery, Hx Urinary Tract Surgery - VASECTOMY - Immunizations Hx Diphtheria, Pertussis, Tetanus Vaccination: - Unknown Review of Systems - Review of Systems Constitutional: No symptoms reported EENT: No symptoms reported Cardiovascular: No symptoms reported Respiratory: No symptoms reported Gastrointestinal: No symptoms reported Genitourinary: No symptoms reported Male Genitourinary: No symptoms reported Musculoskeletal: See HPI Skin: No symptoms reported Hematologic/Lymphatic: No symptoms reported Neurological/Psychological: No symptoms reported -: Yes All other systems reviewed and negative Physical Exam - Vital signs Vitals: Temp Pulse Resp BP Pulse Ox 98.5 F 91 18 121/69 95 01/31/20 12:44 01/31/20 12:44 01/31/20 12:44 01/31/20 12:44 01/31/20 12:44 - Notes Notes: PHYSICAL EXAMINATION: GENERAL: Well-appearing, well-nourished and in no acute distress. HEAD: Atraumatic, normocephalic. EYES: Pupils equal round and reactive to light, extraocular movements intact, sclera anicteric, conjunctiva are normal. ENT: nares patent, oropharynx clear without exudates. Moist mucous membranes. NECK: Normal range of motion, supple without lymphadenopathy, no appreciable JVD LUNGS: Lungs clear to auscultation bilaterally and equal. No wheezes rales or rhonchi. HEART: Regular rate and rhythm without murmurs ABDOMEN: Soft, nontender, normal bowel sounds. No guarding, no rebound. No masses appreciated. EXTREMITIES: Active full range of motion, no pitting or edema. No cyanosis. 2+ pulses x4 Back: No CVA tenderness no step-offs NEUROLOGICAL: No focal neurological deficits. Moves all extremities spontaneously and on command. SKIN: Warm, Dry, and intact. Normal turgor, no rashes or lesions noted. 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 - Vital Signs Vital signs: Temp Pulse Resp BP Pulse Ox 97.8 F 64 18 121/79 96 01/31/20 17:10 01/31/20 17:10 01/31/20 17:10 01/31/20 17:10 01/31/20 17:10 - Laboratory Result Diagrams: 01/31/20 13:00 01/31/20 13:00 Laboratory results interpreted by me: 01/31/20 01/31/20 13:00 13:00 MCHC 36.1 H RDW 15.3 H Lymph % (Auto) 9.0 L Seg Neutrophils % 83.6 H Urine Urobilinogen 4.0 H - Diagnostic Test Radiology reviewed: Reports reviewed Discharge - Discharge Clinical Impression: Flank pain, Exacerbation of systemic lupus Condition: Stable Disposition: HOME, SELF-CARE Additional Instructions: Recommend following up with your event specialist in the next couple of days if symptoms do not resolve. Continue taking medications as previously prescribed. Forms: Parent Work Note Referrals: ZION TOLENTINO MD [Primary Care Provider] - Follow up as needed
[2020-01-31 17:36] VITALS: BP 121/79
== END 2020-01-31 17:11 | disposition home or self-care (01) ==
LOC: ER 12:26
DX: M32.9 Systemic lupus erythematosus, unspecified (principal); R10.9 Unspecified abdominal pain; Z87.891 Personal history of nicotine dependence
CPT/HCPCS: 99284; 96372; 36415; 83690; 85025; 80053; 81001; 71046; J2930

== ENCOUNTER → 2020-08-04 | Outpatient (CLI) | payer MEDICARE, OTHER ==
--- NOTE | 2020-08-04 10:01 | EKG REPORT ---
SEVERITY:- NORMAL ECG - SINUS RHYTHM : Confirmed by: Rupinder Herrera 04-Aug-2020 10:00:20
--- NOTE | 2020-08-04 10:46 | RADIOLOGY REPORT (SQ) ---
EXAM DESCRIPTION: CHEST PA/LATERAL IMAGES COMPLETED DATE/TIME: 08/04/2020 10:15 am REASON FOR STUDY: PRE-OP COMPARISON: 01/31/2020 EXAM PARAMETERS: NUMBER OF VIEWS: two views TECHNIQUE: Digital Frontal and Lateral radiographic views of the chest acquired. RADIATION DOSE: NA LIMITATIONS: none FINDINGS: LUNGS AND PLEURA: No opacities, masses or pneumothorax. No pleural effusion. MEDIASTINUM AND HILAR STRUCTURES: No masses or contour abnormalities. HEART AND VASCULAR STRUCTURES: Heart normal size. No evidence for failure. BONES: No acute findings. HARDWARE: None in the chest. OTHER: No other significant finding. IMPRESSION: NO SIGNIFICANT RADIOGRAPHIC FINDING IN THE CHEST. TECHNICAL DOCUMENTATION: JOB ID: [id number] [employer]- All Rights Reserved Reading location - IP/workstation name: [email or web address]
[2020-08-04 10:49] LABS: ABSOLUTE BASOPHILS # (AUTO) 0.1 10^3/uL (0.0-0.2); ABSOLUTE EOSINOPHILS # (AUTO) 0.1 10^3/uL (0.0-0.6); ABSOLUTE MONOCYTES (AUTO) 0.7 10^3/uL (0.1-1.4); ABSOLUTE NEUT (AUTO) 7.5 10^3/uL (1.7-8.2); BASOPHILS % (AUTO) 1.1 % (0-2); EOSINOPHILS % (AUTO) 1.1 % (0-6); HEMATOCRIT 41.9 % (37.9-51.0); HEMOGLOBIN 14.3 g/dL (13.5-17.0); LYMPHOCYTES % (AUTO) 19.3 % (13-45); MEAN CORPUSCULAR HEMOGLOBIN 28.1 pg (27.0-33.4); MEAN CORPUSCULAR VOLUME 83 fl (80-97); MONOCYTES % (AUTO) 6.9 % (3-13); PLATELET COUNT 293 10^3/uL (150-450); RED BLOOD COUNT 5.08 10^6/uL (4.35-5.55); RED CELL DISTRIBUTION WIDTH 15.7 % (11.5-14.0); SEGMENTED NEUTROPHILS % (AUTO) 71.6 % (42-78); TOTAL CELLS COUNTED % (AUTO) 100 %; WHITE BLOOD COUNT 10.5 10^3/uL (4.0-10.5)
[2020-08-04 11:18] LABS: ANION GAP 12 (5-19); BLOOD UREA NITROGEN 7 mg/dL (7-20); CALCIUM 9.3 mg/dL (8.4-10.2); CARBON DIOXIDE 25 mmol/L (22-30); CHLORIDE 104 mmol/L (98-107); GLUCOSE 83 mg/dL (75-110); POTASSIUM 4.1 mmol/L (3.6-5.0)
== END ==
LOC: OD 09:40
PROVIDERS: ATTEND Orthopaedic Surgery
DX: Z01.810 Encounter for preprocedural cardiovascular examination (principal); Z01.811 Encounter for preprocedural respiratory examination; Z01.812 Encounter for preprocedural laboratory examination; G56.01 Carpal tunnel syndrome, right upper limb; I31.9 Disease of pericardium, unspecified; G47.30 Sleep apnea, unspecified
CPT/HCPCS: 36415; 71046; 80048; 85025; 93005; 93010

== ENCOUNTER → 2020-09-19 | Outpatient (CLI) | payer MEDICARE, OTHER ==
[2020-09-19 10:52] LABS: ANION GAP 10 (5-19); BLOOD UREA NITROGEN 8 mg/dL (7-20); CALCIUM 9.5 mg/dL (8.4-10.2); CARBON DIOXIDE 29 mmol/L (22-30); CHLORIDE 102 mmol/L (98-107); GLUCOSE 80 mg/dL (75-110)
[2020-09-19 11:07] LABS: ABSOLUTE BASOPHILS # (AUTO) 0.1 10^3/uL (0.0-0.2); ABSOLUTE EOSINOPHILS # (AUTO) 0.2 10^3/uL (0.0-0.6); ABSOLUTE LYMPHOCYTES (AUTO) 2.5 10^3/uL (0.5-4.7); ABSOLUTE MONOCYTES (AUTO) 0.9 10^3/uL (0.1-1.4); ABSOLUTE NEUT (AUTO) 6.1 10^3/uL (1.7-8.2); BASOPHILS % (AUTO) 1.2 % (0-2); EOSINOPHILS % (AUTO) 1.5 % (0-6); HEMATOCRIT 41.2 % (37.9-51.0); HEMOGLOBIN 14.2 g/dL (13.5-17.0); LYMPHOCYTES % (AUTO) 25.6 % (13-45); MEAN CORPUSCULAR HEMOGLOBIN 28.4 pg (27.0-33.4); MEAN CORPUSCULAR HGB CONC 34.5 g/dL (32.0-36.0); MEAN CORPUSCULAR VOLUME 82 fl (80-97); MONOCYTES % (AUTO) 9.6 % (3-13); PLATELET COUNT 267 10^3/uL (150-450); RED BLOOD COUNT 4.99 10^6/uL (4.35-5.55); RED CELL DISTRIBUTION WIDTH 15.5 % (11.5-14.0); SEGMENTED NEUTROPHILS % (AUTO) 62.1 % (42-78); TOTAL CELLS COUNTED % (AUTO) 100 %; WHITE BLOOD COUNT 9.8 10^3/uL (4.0-10.5)
== END ==
LOC: OD 09:52
PROVIDERS: ATTEND Orthopaedic Surgery
DX: Z01.812 Encounter for preprocedural laboratory examination (principal); G56.02 Carpal tunnel syndrome, left upper limb
CPT/HCPCS: 36415; 80048; 85025